=== PATIENT | female | born 1955 | race Caucasian/White ===

== ENCOUNTER 2024-03-10 08:47 | Emergency (ER) | payer OTHER, SELFPAY ==
[2024-03-10 08:51] VITALS: BP 141/82
[2024-03-10 09:31] VITALS: BMI 28.4
--- NOTE | 2024-03-10 09:42 | ED.GENMED ---
History of Present Illness
General
Chief Complaint: Chest Problem
Source: patient, records and spouse
Time Seen by Provider: 03/10/24 09:14
Travel History
Have you had any contact with someone who has COVID-19?: No
Do you have any symptoms of coronavirus? Fever > 100 degrees, chills, cough, shortness of breath, sore throat, loss of taste or smell, muscle aches, or headache?: No
History of Present Illness
History of Present Illness:
68-year-old female with past medical history of asthma, CHF, GERD, previous spontaneous pneumothorax presenting to the emergency department for evaluation of right-sided chest/back pain that started around 3 days ago that patient believes started
with a coughing spell noting that around this time a year she usually has allergy exacerbations that will trigger her asthma, pain has been persistent, constant, feels as if she has a bruise, unrelieved with a Tylenol 3 that she took last night.
Patient states her cough does seem to be a little bit improved but her main concern was that she had a recurrence of her spontaneous pneumothorax which is brought her to the emergency department today. Patient denies any fevers, chills, rigors,
nausea, vomiting, abdominal pain, lower extremity edema, pleurisy, hemoptysis, diaphoresis, exertional dyspnea or any other concerns. Patient does note that shortly after experiencing pain she did develop a rash to the same right-sided chest/back.
She states it is erythematous and believes it is from rubbing the area and attempts to soothe the pain.
Past History
Past History
ED Past Medical History: Asthma, GERD, Other (Spontaneous pneumothorax, RA, Pericarditis) and Other (Cardiomyopathy); Negative CAD
ED Past Surgical History: Cholecystectomy and Orthopedic (Finger amputation )
Social History
Tobacco: Smoker (1 pack/day)
Alcohol: Occasional
Drug: None
Personal:
Living: with family
Employment: Employed
Family History
Family History: Other (Noncontributory)
Review of Systems
Review of Systems
All Other Systems: ROS reviewed and negative except as documented in HPI and ROS
Phy Exam
Physical Exam
Physical Exam:
GENERAL: Alert , in no apparent distress
EYE: conjunctiva clear
NECK: Supple
ENT: o/p clr, mmm.
CARDIAC: Regular rate and rhythm
LUNGS: Clear breath sounds bilaterally, no acute respiratory distress, no wheezes/rales/rhonchi
NEUROLOGICAL: Alert and oriented
SKIN: Warm and dry, erythematous rash, nonblanching, mildly tender but without vesicular eruption, located just underneath the right breast wrapping around into the axillary region and 3 small erythematous papules at the level of the distal scapula.
Rash appears to be in a dermatomal pattern
MUSCULOSKELETAL: well perfused.
PSYCH: Normal and appropriate interaction.
Scores
Heart Failure Risk
Heart Failure Risk Score: Not Applicable
Heart Score for Chest Pain Patients
STEMI patient?: Not applicable
Withdrawal Assessment of Alcohol
Withdrawal Assessment Completed?: Not applicable
Course
Orders/Labs/Results
Orders:
Orders
03/10/24 08:54
ECG [Electrocardiogram (*1)] Urgent
Reason for Study: Chest Pain
EKG- Treatment ONCE
03/10/24 09:15
CR Chest - 2 Views Urgent
Comment:
Reason For Exam: right sided chest/back pain, hx spon ptx
Vital Signs
Initial and Last Documented VS:
Initial Vital Signs
Temp Pulse Resp BP Pulse Ox
97.4 F 103 20 141/82 99
03/10/24 08:51 03/10/24 08:51 03/10/24 08:51 03/10/24 08:51 03/10/24 08:51
Last Documented Vital Signs
Temp Pulse Resp BP Pulse Ox
97.4 F 103 20 141/82 99
03/10/24 08:51 03/10/24 08:51 03/10/24 08:51 03/10/24 08:51 03/10/24 08:51
MDM/Problems Addressed
Differential Diagnosis Includes:
Shingles, pneumonia, asthma, less concern for spontaneous pneumothorax, less concern for an atypical ACS presentation
MDM/Problems Addressed:
68-year-old female presenting emergency department for evaluation of right-sided rib/back pain x 3 days, symptoms were started after a coughing spell but patient also noticed a rash developed shortly thereafter. Rash seems to be most consistent
with shingles as there are multiple erythematous nonblanching papules in a dermatomal pattern. A chest x-ray was performed given patient's history of pneumothorax which was unremarkable. EKG is nonischemic. Prescription for Valtrex and gabapentin
sent to patient's pharmacy. She will follow-up with primary care provider. Aware of return precautions. Stable for discharge home.
*Radiology
Radiology exam reviewed: preliminary read by ED provider (No pneumothorax)
*Pulse Oximetry
Patient hypoxic: no
*EKG
Interpreted by ED Provider?: Yes
Comparison EKG: no changes
Heart Rate: 95
Rate: normal
Rhythm: sinus
[place]: normal axis
Ischemia: no ischemia
*Critical Care Note
Total Time (30-74mins, 75-104mins- exclusive of procedures): Not Applicable
Data Reviewed
Review of Other/Old Records Reveals: Labs, Records and Testing
Source: patient, records and spouse
ED Attending Note
-
Portions of this chart may have been created with voice recognition software.� Occasional wrong word or��sound alike� substitutions may have occurred due to the inherent limitations of voice recognition software.
Discharge Plan
Departure
Patient Disposition: Home (Routine Discharge)
Date of Disposition: 03/10/24
Time of Disposition: 09:42
Patient with high blood pressure during this ER visit?: Yes
Discharge Problem:
Shingles rash
Instructions: Shingles (DC)
Prescriptions:
New
valacyclovir [Valtrex] 1 gram tablet
1,000 mg PO TID 7 Days Qty: 21 0RF
gabapentin 300 mg capsule
300 mg PO BID Qty: 10 0RF
No Action
acetaminophen [Tylenol Extra Strength] 500 MG tablet
1,000 mg PO Q6HPRN PRN (Reason: headache)
diphenhydramine HCl [Banophen] 25 MG capsule
25 mg PO DAILYPRN PRN (Reason: allergies)
albuterol sulfate 1 PUFF HFA aerosol inhaler
1 puff inhalation R Q4HPRN PRN (Reason: SOB)
mometasone-formoterol [Dulera] 1 PUFF HFA aerosol inhaler
2 puff IH R BID
prednisone 20 MG tablet
40 mg PO DAILY Qty: 60 0RF
valsartan 80 MG tablet
80 mg PO DAILY Qty: 30 0RF
colchicine 0.6 MG tablet
0.6 mg PO BID Qty: 60 0RF
prednisone 20 mg tablet
40 mg PO DAILY Qty: 8 0RF
azithromycin [Zithromax] 250 mg Tablet
250 mg PO DAILY Qty: 6 0RF
Referrals:
Yoav Jiménez MD [Family Provider] -
Interventions
Interventions:
*Risk Screen - Suicide Last Done: 03/10/24 09:32
*General Assessment Last Done: 03/10/24 09:32
*Neglect/Abuse Screening Last Done: 03/10/24 09:32
ED- Fall Risk Assessment Last Done: 03/10/24 09:32
*ED COVID-19 Vaccine History Last Done: 03/10/24 08:51
ED- Cardiac Assessment Last Done: 03/10/24 09:32
ED- Pulmonary Assessment Last Done: 03/10/24 09:32
Discharge Date and Time
Print Language: BULGARIAN
[2024-03-10 10:11] VITALS: BP 121/70
== END 2024-03-10 10:12 | disposition home or self-care (01) ==
LOC: EMR 08:47
PROVIDERS: EMERGENCY PHYSICIAN Emergency Medicine; FAMILY PHYSICIAN Internal Medicine
DX: B02.9 Zoster without complications (principal); R07.89 Other chest pain; M54.9 Dorsalgia, unspecified; R05.9 Cough, unspecified; R03.0 Elevated blood-pressure reading, without diagnosis of hypertension; J45.909 Unspecified asthma, uncomplicated; I50.9 Heart failure, unspecified; K21.9 Gastro-esophageal reflux disease without esophagitis; I42.9 Cardiomyopathy, unspecified; M06.9 Rheumatoid arthritis, unspecified; F17.210 Nicotine dependence, cigarettes, uncomplicated; Z88.6 Allergy status to analgesic agent; Z88.1 Allergy status to other antibiotic agents; Z91.040 Latex allergy status; Z88.5 Allergy status to narcotic agent; Z91.048 Other nonmedicinal substance allergy status
CPT/HCPCS: 99283; 71046; 93005

== ENCOUNTER → 2024-05-17 14:37 | Outpatient (REF) | payer OTHER, SELFPAY | LOC: RCS 14:37 | PROVIDERS: ATTENDING PHYSICIAN Internal Medicine Cardiovascular Disease; FAMILY PHYSICIAN Internal Medicine | DX: I42.0 Dilated cardiomyopathy (principal) | CPT/HCPCS: 93306 ==

== ENCOUNTER 2025-01-28 06:27 | Day surgery (SDC) | payer OTHER, SELFPAY | END 2025-01-28 16:06 | disposition home or self-care (01) | LOC: GI 06:27 | PROVIDERS: ATTENDING PHYSICIAN Student in an Organized Health Care Education/Training Program | DX: K64.0 First degree hemorrhoids (principal); K57.32 Diverticulitis of large intestine without perforation or abscess without bleeding; K63.1 Perforation of intestine (nontraumatic); D49.0 Neoplasm of unspecified behavior of digestive system; K62.1 Rectal polyp; D12.0 Benign neoplasm of cecum; K63.5 Polyp of colon; D12.3 Benign neoplasm of transverse colon | CPT/HCPCS: 44394; 44404; 44389; 88305 ==

== ENCOUNTER → 2025-02-20 09:46 | Outpatient (REF) | payer OTHER, SELFPAY ==
[2025-02-20 11:08] LABS: Blood Urea Nitrogen 14 mg/dl (7-17)
== END ==
LOC: REG 09:46
PROVIDERS: ATTENDING PHYSICIAN Internal Medicine
DX: Z93.3 Colostomy status (principal)
CPT/HCPCS: 36415; 82565; 84520

== ENCOUNTER → 2025-03-05 11:43 | Outpatient (REF) | payer OTHER, SELFPAY | LOC: RAD 11:43 | PROVIDERS: FAMILY PHYSICIAN Internal Medicine | DX: D12.6 Benign neoplasm of colon, unspecified (principal) | CPT/HCPCS: 71260; 74177; Q9967 ==